=== PATIENT | female | born 1935 | race Caucasian/White ===

== ENCOUNTER → 2020-04-07 | Outpatient (CLI) | payer MEDICARE ==
[~2020-04-07] MED LIST: CETI10TA24 PO; ESTR-113 PO; FURO20TA3 PO; HYDR-3164 PO; LOSA100T14 PO; MECL-75 PO; NAPR220T70 PO; PANT20TA2 PO; SIMV40TA18 PO
== END | disposition home or self-care (01) ==
LOC: SURGPAT 14:05
PROVIDERS: ATTEND Orthopaedic Surgery
DX: Z01.818 Encounter for other preprocedural examination (principal); Z11.59 Encounter for screening for other viral diseases; S83.412A Sprain of medial collateral ligament of left knee, initial encounter; X58.XXXA Exposure to other specified factors, initial encounter; Y93.89 Activity, other specified; Y92.89 Other specified places as the place of occurrence of the external cause; Y99.8 Other external cause status
CPT/HCPCS: C9803; U0003; 36415

== ENCOUNTER 2020-04-11 06:59 | Day surgery (SDC) | payer MEDICARE ==
[~2020-04-11] VITALS: Ht 152.4 cm; Wt 72.0 kg
[~2020-04-11 06:59] MED LIST changes: -HYDR-3164 PO; +ceFAZolin SODIUM IV Push 1 GM VIAL. IVP PRN
[2020-04-11] MEDS ORDERED: fentaNYL PF VIAL 100 MCG/2 ML VIAL IV PRN ×2 (07:00)
[2020-04-11] MEDS ORDERED: MORPHINE SULFATE 2 MG/ML VIAL. IV PRN (07:00)
[2020-04-11] MEDS ORDERED: ONDANSETRON PF 4 MG/2 ML VIAL. IV PRN (07:00)
[2020-04-11] MEDS ORDERED: PROCHLORPERAZINE 10 MG/2 ML VIAL. IV PRN (07:00)
[2020-04-11] MEDS ORDERED: HYDROmorphone 2 MG/ML VIAL IV PRN (07:00)
[2020-04-11] MEDS ORDERED: IV RINGERS,LACTATED 1000ML 1,000 ML IV SCH (07:00)
[2020-04-11] MEDS ORDERED: LIDOCAINE 1% PF 2 ML VIAL. ID PRN (07:00)
[2020-04-11] MEDS ORDERED: DEXAMETHASONE SOD PHOS 4 MG/ML VIAL ONE (07:04)
[2020-04-11] MEDS ORDERED: LIDOCAINE 2% PF 5 ML VIAL. ONE (07:04)
[2020-04-11] MEDS ORDERED: ONDANSETRON PF 4 MG/2 ML VIAL. ONE (07:04)
[2020-04-11] MEDS ORDERED: PROPOFOL 10 MG/ML (20ML) VIAL. IV ONE (07:04)
[2020-04-11] MEDS ORDERED: BUPIVACAINE-EPI 0.5%-1:200000 MPF 30 ML VIAL. ONE (07:22)
[2020-04-11] MEDS ORDERED: fentaNYL PF VIAL 100 MCG/2 ML VIAL ONE (07:48)
[2020-04-11 07:53] LABS: BASO # 0.1 x10^3/uL (0.0-0.2); BASO % 1 % (0-3); EOS # 0.1 x10^3/uL (0.0-0.7); EOS % 1 % (0-3); HEMATOCRIT 35.3 % (36.0-47.0); HEMOGLOBIN 11.9 g/dL (12.0-15.5); LYMPH # 4.8 x10^3/uL (1.0-4.8); LYMPH % 44 % (24-48); MEAN CORPUSCULAR HEMOGLOBIN 30 pg (25-35); MEAN CORPUSCULAR HGB CONC 34 g/dL (31-37); MEAN CORPUSCULAR VOLUME 87 fL (79-100); MONO # 0.9 x10^3/uL (0.0-1.1); MONO % 8 % (0-9); NEUT # 5.1 x10^3/uL (1.8-7.7); NEUT % 47 % (31-73); PLATELET COUNT 332 x10^3/uL (140-400); RED BLOOD COUNT 4.04 x10^6/uL (3.50-5.40); RED CELL DISTRIBUTION WIDTH 14.9 % (11.5-14.5)
--- NOTE | 2020-04-11 07:56 | HP ---
ADMIT DATE: 04/11/2020 PREOPERATIVE HISTORY AND PHYSICAL CHIEF COMPLAINT: Left knee pain. HISTORY OF PRESENT ILLNESS: The patient was actually seen back in early January with difficulty where she had a sudden onset of pain in 08/2019, could not bear weight on her left knee and has had off and on swelling since that time. She had two separate injections, no relief from any of them, not even after a few hours with a local anesthetic. Further, she has ear implants that cannot be shown to be MRI safe as they are too old and she was unable to get an MRI; however, she reports that her symptoms have gotten much worse in the medial side of her left knee since I last saw her. PAST MEDICAL HISTORY: High blood pressure. PAST SURGICAL HISTORY: Implants in her ears and hysterectomy. She is unaware of any family history, social history. Denies smoking, alcohol or drug use. ALLERGIES: INCLUDE PENICILLIN AND INTOLERANCE TO ANNABELLA INHIBITORS. REVIEW OF SYSTEMS: Significant for the knee pain. She has had no recent fever, chills, shortness of breath, chest pain, shortness of breath, radiating pain, focal weakness, numbness or tingling. PHYSICAL EXAMINATION: VITAL SIGNS: Per her admission sheet. HEENT: Atraumatic, normocephalic. HEART: Regular rate and rhythm. LUNGS: Clear to auscultation bilaterally. ABDOMEN: Benign. EXTREMITIES: Examination of the left knee reveals medial joint line tenderness with Dieter's testing. There is no pain with valgus stress and no ligamentous instability. She has good patellofemoral tracking with minimal crepitus bilaterally. The Dieter's test is negative on contralateral right knee. She has normal examination of bilateral hips and ankles. IMAGING: X-rays show from 08/2019 at [facility] show very minimal medial joint line narrowing. No significant spurring or other degenerative changes. No loose body or other bony abnormality. IMPRESSION: 1. Resolved sprain, medial collateral ligament of the left knee. 2. Ongoing medial joint line symptoms significant for concern for medial meniscus tear. 3. Inability to get an MRI due to ear implants. TREATMENT PLAN: I went over with her that this certainly sounds based on the worsening and minimal x-ray changes that she does have a meniscus injury, particularly given the sudden aspect, we cannot really confirmed this with MRI of course, but I did go over with her recommended arthroscopic evaluation and risks, benefits, postoperative course of that procedure including the possibility of infection, continued pain, blood clots, nerve or blood vessel damage, medical or other anesthetic complications among others. All her questions were answered and she wishes to proceed with surgical evaluation and treatment on an outpatient basis today. DUSTIN LIPSCOMB MD DR: LUCERO/angelique JOB#: [id number] / [id number]
--- NOTE | 2020-04-11 08:05 | EKG ---
[facility] [address] [place] [address] Test Date: 2020-04-11 Test Time: 07:58:52 Pat Name: ADAM WEBER Department: Room: Gender: F Reinforcer: ALEJANDRO Botello : 1935 Requested By: DUSTIN LIPSCOMB Order Number: [id number] Reading MD: Agustín Navarro Measurements Intervals [place] Rate: 84 P: 90 IN: 194 QRS: -24 QRSD: 118 T: 36 QT: 390 QTc: 464 Interpretive Statements SINUS RHYTHM LEFTWARD AXIS QRS(T) CONTOUR ABNORMALITY CONSIDER ANTEROSEPTAL MYOCARDIAL DAMAGE Electronically Signed On 04-11-2020 15:52:55 CDT by Agustín Navarro
[2020-04-11 08:10] LABS: CALCIUM 8.7 mg/dL (8.5-10.1); CREATININE 1.3 mg/dL (0.6-1.0); GFR 39.2; POTASSIUM 3.3 mmol/L (3.5-5.1)
[2020-04-11] MEDS ORDERED: HYDR-3164 PO (09:53)
--- NOTE | 2020-04-11 09:54 | DISCH ---
DISCHARGE INSTRUCTIONS Condition on Discharge Condition on Discharge: Stable Activity After Discharge Activity Instructions for Disc: Progressive ambulation Weight Bearing Status after Di: As tolerated Diet after Discharge Diet after Discharge: Regular Wound Incision Care Wound/Incision Care: Change dressing (Remove dressing in 2 days may then shower no soaking in tub until sutures removed) Contacting the DRGian after DC Call your doctor for: Concerns you may have Follow-Up Follow up with: Dr. Renee 7 to 10 days DUSTIN RENEE MD April 11, 2020 09:54
[2020-04-11] MEDS ORDERED: HYDROcodone/APAP 5/325MG 1 TAB TABLET PO ONE (10:00)
[2020-04-11 10:05] VITALS: BP 183/77
--- NOTE | 2020-04-11 14:49 | PDOC4 ---
Operative Note Operative Note Date of surgery: 04/11/2020 Preoperative diagnosis: Medial meniscus tear Postoperative diagnosis: Same plus free edge lateral meniscus tear and calcification under meniscus body and posterior horn Operative procedure: Left knee arthroscopy partial medial and lateral meniscectomy with excision calcification medially Surgeon: Víctor Traffic Assistant: James dalton Anesthesia: General Estimated blood loss: 5 cc Complications: None Operative indications: Please see my orthopedic clinic note for detailed operative indications and note that I did cover that although we are attempting to address the mechanical aspects of the meniscus tear I am not able to undo any degenerative changes and those related symptoms would have to be treated on an ongoing symptomatic basis. Operative text: Patient was identified procedure verified patient placed in the supine position on the operating table. After adequate amounts of general anesthesia were administered the left lower extremity was prepped and draped in the standard sterile fashion with a thigh tourniquet. After timeout was performed patient procedure identified and verified the left lower extremity was exsanguinated by Esmarch bandage tourniquet inflated to 300 mmHg a lateral portal was established medial portal established using spinal needle localization and the knee joint was systematically examined. She was found to have a displaceable tear of the posterior horn medial meniscus which was trimmed back to stable tissue and I also noted significant calcification beneath the body and posterior horn of the medial meniscus and this calcification was excised entirely without causing additional trauma or destabilizing the meniscus using the arthroscopic shaver. ACL was probed and found to be intact. The lateral compartment was noted to have significant bursitis that was cleared for visualization and significant free edge type degeneration of the lateral meniscus which was a bit larger than normal not quite a discoid situation however and debridement was carried back out to a stable meniscal rim being careful not to excise otherwise stable meniscus tissue. 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 James dalton was present for the procedure and assisted in the prepping draping retraction closure dressing placement DUSTIN LIPSCOMB MD April 11, 2020 14:49
== END 2020-04-11 10:40 | disposition home or self-care (01) ==
LOC: SURG 06:59
PROVIDERS: ATTEND Orthopaedic Surgery
DX: M23.222 Derangement of posterior horn of medial meniscus due to old tear or injury, left knee (principal); M23.252 Derangement of posterior horn of lateral meniscus due to old tear or injury, left knee; I10 Essential (primary) hypertension; Z90.710 Acquired absence of both cervix and uterus; Z88.0 Allergy status to penicillin
CPT/HCPCS: 29880; 36415; 80048; 85025; 93005; A7015; J0690; J1100; J2405; J2704; J3010; J3490